=== PATIENT | female | born 1980 | race Caucasian/White ===

== ENCOUNTER 2019-02-22 01:28 | Emergency (ER) | payer MEDICAID ==
[~2019-02-22] VITALS: Ht 172.7 cm; Wt 88.5 kg
[2019-02-22] MEDS ORDERED: cefTRIAXone W LIDOCAINE 1 GM IM IM ONE (04:00)
[2019-02-22 04:03] LABS: Basophils # (auto) 0.1 uL; Basophils % (auto) 0.6 % (0.0-2.0); Eosinophils % (auto) 9.8 % (0.0-7.0); Hematocrit 39.6 % (36.0-46.0); Hemoglobin 13.6 g/dL (12.2-16.2); Lymphocytes # (auto) 3.3 uL; Lymphocytes % (auto) 32.1 % (10.0-50.0); Mean Corpuscular Hemoglobin 31.6 pg (28.0-32.0); Mean Corpuscular Hgb Conc. 34.3 g/dL (32.0-36.0); Mean Corpuscular Volume 92.4 fL (80.0-100.0); Monocytes # (auto) 0.7 uL; Monocytes % (auto) 6.6 % (0.0-12.0); Neutrophils # (auto) 5.3 uL; Neutrophils % (auto) 50.9 % (37.0-80.0); Platelet Count (auto) 185 10^3/uL (140-450); Red Blood Cells 4.29 10^6/uL (4.0-5.20); Red Cell Distribution Width 13.1 % (11.8-14.3); White Blood Cell 10.3 10^3/uL (4.4-10.8)
[2019-02-22 04:23] LABS: Albumin 3.5 g/dL (3.4-5.0); BUN/Creatinine Ratio 9.9; Calcium 8.2 mg/dL (8.5-10.1)
[2019-02-22 04:26] LABS: Bilirubin, Total 0.2 mg/dL (0.2-1.0); Total Protein 6.8 g/dL (6.4-8.2)
[2019-02-22] MEDS ORDERED: cefTRIAXone SOD 1,000 MG VL ONE (04:28)
[2019-02-22] MEDS ORDERED: LIDOCAINE 1% HCL (LOCAL ANESTH.) INJ 20ML MDV ID ONE (04:30)
[2019-02-22] MEDS ORDERED: MECLIZINE HCL 25 MG TAB PO ONE (04:30)
[2019-02-22 05:15] VITALS: BP 105/61
== END 2019-02-22 06:15 | disposition home or self-care (01) ==
LOC: ER 01:28
DX: R42 Dizziness and giddiness (principal); H53.8 Other visual disturbances; F17.210 Nicotine dependence, cigarettes, uncomplicated; Z98.51 Tubal ligation status
CPT/HCPCS: 36415; 70450; 80053; 85025; 96372; 99284; J0696; J2001; J8597

== ENCOUNTER 2024-04-03 16:53 | Emergency (ER) | payer BC, MEDICAID ==
[~2024-04-03] VITALS: Ht 172.7 cm; Wt 92.0 kg
[2024-04-03 18:43] LABS: Basophils # (auto) 0 10 ^3/uL (0-0.2); Basophils % (auto) 0.3 % (0.0-2.0); Eosinophils # (auto) 0.1 10 ^3/uL (0-0.8); Eosinophils % (auto) 0.8 % (0.0-7.0); Hematocrit 37.7 % (36.0-46.0); Hemoglobin 13.1 g/dL (12.2-16.2); Lymphocytes # (auto) 2.6 10 ^3/uL (0.4-5.4); Lymphocytes % (auto) 29.9 % (10.0-50.0); Mean Corpuscular Hemoglobin 32.1 pg (28.0-32.0); Mean Corpuscular Hgb Conc. 34.8 g/dL (32.0-36.0); Mean Corpuscular Volume 92.3 fL (80.0-100.0); Monocytes # (auto) 0.6 10 ^3/uL (0-1.3); Monocytes % (auto) 6.9 % (0.0-12.0); Neutrophils # (auto) 5.5 10 ^3/uL (1.6-8.6); Neutrophils % (auto) 62.1 % (37.0-80.0); Platelet Count (auto) 225 10^3/uL (140-450); Red Blood Cells 4.09 10^6/uL (4.0-5.20); Red Cell Distribution Width 12.9 % (11.8-14.3); White Blood Cell 8.8 10^3/uL (4.4-10.8)
[2024-04-03 19:02] LABS: Alanine Aminotransferase 22 U/L (7-40); Albumin 4.4 g/dL (3.2-4.8); Alkaline Phosphatase 90 U/L (46-116); Anion Gap 3 (5-15); Aspartate Aminotransferase 14 U/L (13-40); BUN/Creatinine Ratio 10.5 (10.0-20.0); Bilirubin, Total 0.4 mg/dL (0.2-1.0); Blood Urea Nitrogen 8 mg/dL (9-23); Calcium 9.2 mg/dL (8.7-10.4); Carbon Dioxide 26 mmol/L (20-30); Chloride 97 mmol/L (98-107); Glucose 96 mg/dL (74-106); Sodium 126 mmol/L (136-145); Total Protein 6.9 g/dL (5.7-8.2)
[2024-04-03] MEDS ORDERED: SODIUM CHLORIDE 0.9% 1,000 ML IV ONE (19:15)
[2024-04-03] MEDS: SODIUM CHLORIDE 0.9% 1,000 ML IV ONE (20:30)
[2024-04-03 22:19] LABS: Alanine Aminotransferase 20 U/L (7-40); Albumin 4.1 g/dL (3.2-4.8); Alkaline Phosphatase 83 U/L (46-116); Anion Gap 1 (5-15); Aspartate Aminotransferase 15 U/L (13-40); BUN/Creatinine Ratio 9.9 (10.0-20.0); Bilirubin, Total 0.5 mg/dL (0.2-1.0); Blood Urea Nitrogen 7 mg/dL (9-23); Calcium 8.7 mg/dL (8.7-10.4); Carbon Dioxide 26 mmol/L (20-30); Chloride 99 mmol/L (98-107); Glucose 93 mg/dL (74-106); Potassium 4.1 mmol/L (3.5-5.1); Sodium 126 mmol/L (136-145); Total Protein 6.6 g/dL (5.7-8.2)
[2024-04-03] MEDS: SODIUM CHLORIDE 1 GM TAB PO ONE (23:33)
[2024-04-03 23:46] VITALS: BP 118/67; PULSE 64; RESP 16; TEMP 97.8; O2SAT 99
== END 2024-04-03 23:47 | disposition home or self-care (01) ==
LOC: ER 16:53
DX: E87.1 Hypo-osmolality and hyponatremia (principal); F41.9 Anxiety disorder, unspecified; F17.210 Nicotine dependence, cigarettes, uncomplicated; F10.10 Alcohol abuse, uncomplicated; Z98.890 Other specified postprocedural states
CPT/HCPCS: 36415; 70450; 80053; 84484; 85025; 96360; 99284; J7030

== ENCOUNTER 2025-05-23 02:02 | Emergency (ER) | payer BC ==
[~2025-05-23] VITALS: Ht 172.7 cm; Wt 85.9 kg
--- NOTE | 2025-05-23 02:42 | ED.PDOC ---
INSPECTOR AND UNLOADER HPI Comments DIANNA: HPI: Poor Historian. 45-year-old female presents to emergency depart for episode of suprapubic pain with the associated vaginal bleed. Patient is status post in the mid to uses D&C that was on . Patient has been doing okay since then but something went crazy at home that led to this event involving other family members. Patient is started developing suprapubic pain and noticed some slightly more bleeding than usual in the postoperative course. Patient has some associated nausea. Denies any other symptoms. Past Medical History: Seizures Past Surgical History: Dilatation and curettage 4 days ago REVIEW OF SYSTEMS: CONSTITUTIONAL: Denies acute: fever, diaphoresis, chills, generalized weakness. HEAD: Denies acute: headache, photophobia Eyes: Denies acute: Double vision, vision loss, eye pain, eye discharge. EARS: Denies acute: tinnitus, hearing loss, ear discharge, ear pain, THROAT: Denies acute: sore throat, swelling, difficulty swallowing , pain with swallowing, change in voice. NECK: Denies acute: neck pain, neck swelling, stiff neck. HEART: Denies acute : chest pain, palpitations, LUNGS: Denies acute: SOB, wheezing, cough, hemoptysis ABDOMEN: Denies acute: Nausea, Vomiting, diarrhea, melena , hematemesis, hematochezia SKIN: Denies acute: rash, redness, lesions, itchiness. EXTREMITIES: Denies acute: calf pain, numbness, tingling, weakness, denies pain in extremity. Denies acute: Low back pain. Neuro: Denies acute: focal neurological deficit, motor or sensory focal neurological deficit, tremors, seizure like activity, confusion, dizziness, change in mental status, loss of bowel or bladder function, cauda equina like symptoms. : Denies acute: dysuria, hematuria, flank pain, increase in urinary frequency. PSYCH: Denies acute: hallucination, suicidal ideation, homicidal ideation. FEMALE: Denies acute: foul odor, unusual discharge. PHYSICAL EXAM: General: -----mild---acute distress, awake and alert. Head: normocephalic, atraumatic. Neck: supple, trachea is midline, no swelling. Throat: Normal phonation. Eyes:, no erythema, no purulent discharge, no proptosis, no icterus. Heart: regular rate, regular rhythm, no significant murmur appreciated. Lungs: no apparent respiratory distress, Able to speak in full sentences. No wheezing, no rhonchi, no crackles. No stridors Clear to auscultation bilaterally. Abdomen: Suprapubic tender to palpation, non distended, soft, no guarding, no rebound, + bowel sounds. Evaluation of the suprapubic area. There is a noted surgical wound that is clean dry and intact. No dehiscence. No signs and symptoms suggest infection. No swelling. Neuro: Awake, Alert, oriented to name, self, situation, follows commands GCS=15. Speech is normal. Skin: no petechia, no purpura, no cyanosis, non-pale, not jaundice. Lower extremities: --no - Pitting edema no deformity, no focal swelling, no calf TTP. Makes eye contact. moves all four extremities. Face: no apparent facial droop. Ambulating in the ED independently. ED COURSE: DISCLAIMER: This medical document was created using an electronic medical record system with voice recognition software and computerized dictation system. Although this document has been carefully reviewed, there might still be some phonetic and typographical errors. Occasional wrong-word or "sound-alike" substitutions may have occurred due to the inherent limitations of voice recognition software. These areas are purely typographical due to imperfections of the software programs and do not reflect any compromise in the patient's medical care. Please read the chart carefully and recognize, using context, where these substitutions have occurred. Chief Complaint: Vaginal Bleed Time Seen by MD: 02:22 Reviewed Notes: Nurses Notes Allergies: Coded Allergies: Egg-derived Products (Verified Allergy, Unknown, 05/23/25) Information Source: Patient Mode of Arrival: Ambulatory Timing: Hours Past Medical History PAST MEDICAL HISTORY: Anxiety, Seizures Surgical History: BTL, Hernia Repair Surgical History (Other): Dilatation and curettage, colonoscopy DIVISION OPERATIONS MANAGER History: No Pertinent DIVISION OPERATIONS MANAGER History Family History Family History: Reviewed,noncontributory to illness Social History Smoker: Non-Smoker Alcohol: Rarely Drugs: Denies Drug Use Lives In: Home Was a procedure done? Was a procedure done?: No Differential Diagnosis (DIVISION OPERATIONS MANAGER) Vaginal Bleeding: - Complete, - Incomplete, - Inevitable, - Missed, - Threatened, Abruptio Placentae, Blood Loss Anemia, Cervicitis, Dysmenorrhea, Ectopic , Hormonal, Menorrhagia, Menometrorrhagia, Menstrual Bleeding, Myomatous Uterus, PID, Placenta Previa, Precipitous Hct, Trauma, UTI, Vaginitis, Other (Differential diagnosis includes but not limited to DU B, menorrhea, metromenorrhagia, neoplasm, coagulopathy,, trauma, miscarriage, placenta previa, placental abruption, ) X-Ray, Labs, Meds, VS Vital Signs Date Time Temp Pulse Resp B/P (MAP) Pulse Ox O2 Delivery O2 Flow Rate FiO2 05/23/25 04:25 98.0 77 14 149/89 (109) 98 98.0 05/23/25 02:04 97.8 84 20 122/81 98 97.8 Lab Test 05/23/25 03:46 05/23/25 02:34 Range/Units Urine Color Light-yellow Yellow Urine Clarity Clear Clear Urine pH 6.5 5.0-9.0 Urine Specific [place] 1.022 1.001-1.035 Urine Protein Negative Negative Urine Ketones 1+ H Negative Urine Blood 3+ H Negative /uL Urine Nitrite Negative Negative Urine Bilirubin Negative Negative Urine Urobilinogen Normal Negative mg/dL Urine Leukocyte Esterase Negative Negative /uL Urine RBC 98 0 - 4 /hpf Urine Microscopic WBC 1 0-5 /HPF Urine Squamous Epithelial Cells Few <5 /hpf Urine Bacteria Few H None Seen /hpf Urine Mucus Few None Seen Urine Glucose Normal Normal mg/dL White Blood Count 8.7 4.4-10.8 10^3/uL Red Blood Count 4.26 4.0-5.20 10^6/uL Hemoglobin 13.3 12.2-16.2 g/dL Hematocrit 39.0 36.0-46.0 % Mean Corpuscular Volume 91.5 80.0-100.0 fL Mean Corpuscular Hemoglobin 31.1 28.0-32.0 pg Mean Corpuscular Hemoglobin Concent 34.0 32.0-36.0 g/dL Red Cell Distribution Width 12.6 11.8-14.3 % Platelet Count 255 140-450 10^3/uL Mean Platelet Volume 7.6 6.9-10.8 fL Neutrophils (%) (Auto) 55.6 37.0-80.0 % Lymphocytes (%) (Auto) 35.6 10.0-50.0 % Monocytes (%) (Auto) 6.2 0.0-12.0 % Eosinophils (%) (Auto) 2.2 0.0-7.0 % Basophils (%) (Auto) 0.4 0.0-2.0 % Neutrophils # (Auto) 4.8 1.6-8.6 10 ^3/uL Lymphocytes # (Auto) 3.1 0.4-5.4 10 ^3/uL Monocytes # (Auto) 0.5 0-1.3 10 ^3/uL Eosinophils # (Auto) 0.2 0-0.8 10 ^3/uL Basophils # (Auto) 0 0-0.2 10 ^3/uL Nucleated Red Blood Cells 0.1 % Sodium Level 130 L 136-145 mmol/L Potassium Level 3.6 3.5-5.1 mmol/L Chloride Level 98 98-107 mmol/L Carbon Dioxide Level 25 20-31 mmol/L Anion Gap 7 5-15 Blood Urea Nitrogen 9 9-23 mg/dL Creatinine 0.73 0.550-1.02 mg/dL Glomerular Filtration Rate Calc 102 >90 mL/min BUN/Creatinine Ratio 12.3 10.0-20.0 Serum Glucose 97 74-106 mg/dL Lactic Acid Level 0.6 0.4-2.0 mmol/L Calcium Level 8.7 8.7-10.4 mg/dL Current Medications Medications (Trade) Dose Ordered Sig/Chase Route Start Time Stop Time Status Last Admin Sodium Chloride 1,000 ml @ 1,000 mls/hr Q1H ONCE IV 05/23/25 04:15 05/23/25 05:14 05/23/25 04:48 Ondansetron HCl (Zofran) 8 mg ONCE ONCE IV 05/23/25 04:15 05/23/25 04:16 DC 05/23/25 04:[address] [address] Ph: [phone] DIAGNOSTIC IMAGING Diagnostic Imaging Report : [id number] Signed PATIENT: MADISYN BUSTAMANTE I ACCT: [id number] UNIT: [id number] : 1980 LOC: ER ROOM / BED: / AGE / SEX: 45 / F ADM STATUS: REG ER SERVICE 0224 ORDERING PHYSICIAN: CONNIE NEWBY DO PROCEDURE(s): PELTR - TRANSVAGINAL US NON OB REASON: vag bleed ORDER NUMBER(s): [id number], ACCESSION NUMBER(s): [id number] INDICATION: vag bleed TECHNIQUE: Real time only endovaginal ultrasound imaging of the pelvis was performed with macias scale, color flow, and spectral Doppler. COMPARISON: US PELVIC TRANSABDOMINAL ONLY on DOS: 02/18/25 FINDINGS: The uterus is anteverted measuring 8.6 x 4.7 x 4.5 cm. The endometrium estimated 0.7 cm. The right ovary measures 3.8 x 2.3 x 2.3 cm. The left ovary measures 2.5 x 2.1 x 1.9 cm. There are nabothian cysts. Small follicles are noted measuring up to 1.2 cm on the left ovary. Arterial venous flow is present bilaterally. No significant free fluid. IMPRESSION: Unremarkable transabdominal examination of the pelvis. ATED BY: JAZMÍN REID MD DICTATED DATE/TIME: 05/23/25437 SIGNED BY: JAZMÍN REID MD SIGNED DATE/TIME: 05/23/25437 CC: Time of 1ST Reevaluation: 02:41 Reevaluation 1ST: Unchanged Patient Education/Counseling: Diagnosis, Treatment Family Education/Counseling: No Family Present Comments MDM: patient presented with the above HPI.---suprapubic pain and vaginal bleed---workup was initiated. patient was found with the above mentioned diagnosis. the following medications were ordered: please refer to order lists of meds and tests obtained by myself Dr. Newby. Patient ED course and VS have been stabilized. Patient has been reassessed in the ED and remained in a stable condition. Pertinent incidental findings were discussed with the patient and/or family. Patient/family voices understanding and is agreeable with plan. Patient has been observed in the ED adequate length of time to insure improvement/stability. Escalation of care considered: Consideration of escalation to observation or admission Given the patient presents with bacteria in the urine and her suprapubic pain, eye discharge the patient home with the antibiotics. Patient was DISCHARGED home in a stable condition. All the reports of any imaging studies that were ordered by myself were reviewed by myself. Departure 1 Departure Time of Disposition: 05:03 Impression: Primary Impression: Postoperative pain Additional Impression: Postoperative vaginal bleeding Disposition: HOME / SELF CARE / HOMELESS Condition: Stable Additional Instructions: Additional instructions: Please read all instructions provided in this packet carefully. You MUST follow-up with your primary care/family doctor in 1 to 2 days. If you are unable to see your primary care/family doctor, please return to our emergency room for re-assessment and re-evaluation in 1 to 2 days. Return to the emergency room here in our facility or to the nearest ER [facility] if your symptoms change or worsen. CONSULTATIONS: you MUST Follow-up for consultation as soon as possible with: ----OB Gyne doctor in 1-2 days. Please call for appointment You MUST call the consultants office yourself to make an appointment. You may need to arrange that through your insurance and/or your primary/family doctor. If you are unable to see the surgery consultant in 1 to 2 days, you must return to our emergency room (or any other ER of your choice) for re-assessment and re- evaluation. Adequate fluid hydration. Although you have been discharged from the Emergency Department, this does not mean that you have a "clean bill of health". No definitive diagnosis for your symptoms has been made today. It is possible that you are in the process of developing a serious illness. This is why you must return to the ED without fail if any new or worsening symptoms develop. Absolute pelvic rest. No heavy lifting. Below is a copy of your radiological report for follow up: [address] [address] Ph: [phone] DIAGNOSTIC IMAGING Diagnostic Imaging Report : [id number] Signed PATIENT: MADISYN BUSTAMANTE I ACCT: [id number] UNIT: [id number] : 1980 LOC: ER ROOM / BED: / AGE / SEX: 45 / F ADM STATUS: REG ER SERVICE 0224 ORDERING PHYSICIAN: CONNIE NEWBY DO PROCEDURE(s): PELTR - TRANSVAGINAL US NON OB REASON: vag bleed ORDER NUMBER(s): [id number], ACCESSION NUMBER(s): [id number] INDICATION: vag bleed TECHNIQUE: Real time only endovaginal ultrasound imaging of the pelvis was performed with macias scale, color flow, and spectral Doppler. COMPARISON: US PELVIC TRANSABDOMINAL ONLY on DOS: 02/18/25 FINDINGS: The uterus is anteverted measuring 8.6 x 4.7 x 4.5 cm. The endometrium estimated 0.7 cm. The right ovary measures 3.8 x 2.3 x 2.3 cm. The left ovary measures 2.5 x 2.1 x 1.9 cm. There are nabothian cysts. Small follicles are noted measuring up to 1.2 cm on the left ovary. Arterial venous flow is present bilaterally. No significant free fluid. IMPRESSION: Unremarkable transabdominal examination of the pelvis. ATED BY: JAZMÍN REID MD DICTATED DATE/TIME: 05/23/25437 SIGNED BY: JAZMÍN REID MD SIGNED DATE/TIME: 05/23/25437 CC: e-Prescriptions Nitrofurantoin Monohydrate Mac (Macrobid) 100 Mg Cap 100 MG PO BID for 7 Days, #14 CAP Prov: CONNIE NEWBY DO 05/23/25 Discharged With: Self Critical Care Note Critical Care Time?: No Stability Stability form required: No I personally scribed for CONNIE NEWBY DO ([email or web address]) on 05/23/25 at 02:42. Electronically submitted by Jeronimo Bonilla ([facility] I personally scribed for CONNIE NEWBY DO ([email or web address]) on 05/23/25 at 02:46. Electronically submitted by Jeronimo Bonilla ([email or web address]). I personally scribed for CONNIE NEWBY DO ([email or web address]) on 05/23/25 at 02:46. Electronically submitted by Jeronimo Bonilla ([email or web address]). I personally scribed for CONNIE NEWBY DO ([email or web address]) on 05/23/25 at 05:05. Electronically submitted by Jeronimo Bonilla ([facility]). CONNIE NEWBY DO May 23, 2025 02:42
[2025-05-23 02:55] LABS: Hematocrit 39.0 % (36.0-46.0); Hemoglobin 13.3 g/dL (12.2-16.2); Mean Corpuscular Hemoglobin 31.1 pg (28.0-32.0); Mean Corpuscular Volume 91.5 fL (80.0-100.0); Nucleated Red Blood Cells % 0.1 %
[2025-05-23 02:59] LABS: Chloride 98 mmol/L (98-107); Potassium 3.6 mmol/L (3.5-5.1)
[2025-05-23 03:00] LABS: Anion Gap 7 (5-15); Calcium 8.7 mg/dL (8.7-10.4); Carbon Dioxide 25 mmol/L (20-31)
[2025-05-23 03:02] LABS: Sodium 130 mmol/L (136-145)
[2025-05-23 03:05] LABS: BUN/Creatinine Ratio 12.3 (10.0-20.0); Glucose 97 mg/dL (74-106)
[2025-05-23 03:08] LABS: Blood Urea Nitrogen 9 mg/dL (9-23)
[2025-05-23 04:03] LABS: Urine Protein, UAD Negative (Negative)
[2025-05-23 04:25] VITALS: BP 149/89; PULSE 77; RESP 14; TEMP 98; O2SAT 98
--- NOTE | 2025-05-23 04:39 | DVH ---
INDICATION: vag bleed TECHNIQUE: Real time only endovaginal ultrasound imaging of the pelvis was performed with g ray scale, color flow, and spectral Doppler. COMPARISON: US PELVIC TRANSABDOMINAL ONLY on DOS: 02/18/25 FINDINGS: The uterus is anteverted measuring 8.6 x 4.7 x 4.5 cm. The endometrium estimated 0.7 cm. The right ovary measures 3.8 x 2.3 x 2.3 cm. The left ovary measures 2.5 x 2.1 x 1.9 cm. There are n abothian cysts. Small follicles are noted measuring up to 1.2 cm on the left ovary. Arterial venous f low is present bilaterally. No significant free fluid. IMPRESSION: Unremarkable transabdominal examination of the pelvis.
[2025-05-23] MEDS: SODIUM CHLORIDE 0.9% 1,000 ML IV ONE (04:48)
[2025-05-23] MEDS: ONDANSETRON HCL 4 MG/2 ML VIAL IV ONE (04:49)
[2025-05-23] MEDS: HYDROcodone-ACET 5/325MG TAB PO ONE (04:49)
[2025-05-23] MEDS ORDERED: NITR-87 PO (05:07)
== END 2025-05-23 05:50 | disposition home or self-care (01) ==
LOC: ER 02:02
DX: G89.18 Other acute postprocedural pain (principal); N99.820 Postprocedural hemorrhage of a genitourinary system organ or structure following a genitourinary system procedure; F10.90 Alcohol use, unspecified, uncomplicated; F41.9 Anxiety disorder, unspecified; Z98.890 Other specified postprocedural states
CPT/HCPCS: 36415; 76830; 80048; 81001; 83605; 85025; 96361; 96374; 99285; J2405; J7030